=== PATIENT | female | born 1945 | race Caucasian/White ===

== ENCOUNTER 2021-02-01 03:58 | Inpatient (IN) | payer MEDICARE, OTHER ==
[~2021-02-01] VITALS: Ht 162.6 cm; Wt 6.1 kg
[2021-02-01] MEDS ORDERED: normal saline 1000ml 1,000 ML IVB ONE (04:05)
[2021-02-01] MEDS ORDERED: acetaminophen 325mg tablet PO STA (04:05)
[2021-02-01] MEDS ORDERED: CefTRIAXone 2gm/D5W 50ml BAG 50 ML IV ONE (04:15)
[2021-02-01 04:32] LABS: BASOPHILS % (AUTO) 0.4 % (0-1); EOSINOPHILS % (AUTO) 0.6 % (0-6); HEMATOCRIT 39.2 % (35.0-45.0); HEMOGLOBIN 13.3 g/dl (12.0-16.0); LYMPHOCYTES # (AUTO) 0.7 X10'3 (1.1-4.8); LYMPHOCYTES % (AUTO) 8.9 % (21-51); MEAN CORPUSCULAR HEMOGLOBIN 32.9 PG (27.0-31.0); MEAN CORPUSCULAR HGB CONC 34.1 g/dL (33.0-36.5); MEAN CORPUSCULAR VOLUME 96.6 FL (78-98); MEAN PLATELET VOLUME 6.6 FL (7.4-10.4); MONOCYTES # (AUTO) 0.5 X10'3 (0-0.9); MONOCYTES % (AUTO) 6.6 % (2-12); NEUTROPHILS # (AUTO) 6.5 X10'3 (1.8-7.7); NEUTROPHILS % (AUTO) 83.5 % (42-75); PLATELET COUNT 252 X10'3 (140-440); RED BLOOD COUNT 4.05 X10'6 (4.20-5.60); RED CELL DISTRIBUTION WIDTH 13.5 % (11.5-14.5); WHITE BLOOD COUNT 7.8 X10'3 (4.5-11.0)
[2021-02-01 04:52] LABS: ALANINE AMINOTRANSFERASE 31 U/L (12-78); ALBUMIN 3.6 G/DL (3.4-5.0); ALBUMIN/GLOBULIN RATIO 1.1 (1.1-1.5); ALKALINE PHOSPHATASE 70 IU/L (46-116); ANION GAP 11 (8-16); ASPARTATE AMINO TRANSFERASE 31 U/L (10-37); BILIRUBIN,TOTAL 1.3 MG/DL (0.1-1.0); BLOOD UREA NITROGEN 14 MG/DL (7-18); BUN/CREATININE RATIO 15.2 (6.6-38.0); CALCIUM 8.9 MG/DL (8.5-10.1); CHLORIDE 108 MMOL/L (99-107); CREATININE 0.92 MG/DL (0.40-0.90); GLUCOSE 115 MG/DL (70-104); POTASSIUM 3.9 MMOL/L (3.5-5.1); SODIUM 143 MMOL/L (135-145); TOTAL CARBON DIOXIDE 23.9 MMOL/L (24-32); eGFR 60 ML/MIN
[2021-02-01] MEDS ORDERED: fentaNYL/PF 50MCG/1 ML 2ML syringe IV STA (05:11)
[2021-02-01] MEDS ORDERED: ketorolac trometh. 30mg/ml inj. IV STA (05:11)
--- NOTE | 2021-02-01 05:12 | NUR ---
MD INFORMED THAT PATIENT'S TEMPERATURE WENT UP AND SHE CONTINUES TO SHAKE AND IS VERY UNCOMFORTABLE HE WAS AT BS TO SEE HER, VO PLACED
[2021-02-01 05:40] LABS: CLARITY,URINE CLOUDY (Clear); COLOR,URINE YELLOW (Yellow); GLUCOSE, URINE NEGATIVE (Neg); KETONES,URINE NEGATIVE (Neg); LEUKOCYTE ESTERASE ,URINE SMALL (Neg); NITRITES, URINE POSITIVE (Neg); OCCULT BLOOD,URINE SMALL (Neg); PROTEIN,URINE NEGATIVE (Neg); UROBILINOGEN,URINE 0.2 E.U/dL (0.2-1.0)
[2021-02-01] MEDS ORDERED: potassium Cl 20 mEq SR tablet PO PRN ×2 (05:45)
[2021-02-01] MEDS ORDERED: magnesium 2GM in 50ml NS 50 ML IV PRN (05:45)
[2021-02-01] MEDS ORDERED: magnesium hydroxide 30ml (MOM) UD suspension PO PRN (05:45)
[2021-02-01] MEDS ORDERED: ondansetron/PF 4mg/2ml inj IV PRN (05:45)
[2021-02-01] MEDS ORDERED: magnesium 4gm in 100ml NS 100 ML IV PRN (05:45)
[2021-02-01] MEDS ORDERED: acetaminophen 325mg tablet PO PRN (05:45)
[2021-02-01] MEDS ORDERED: mag hydrox/Alum hydrox/simeth 30ml oral suspension PO PRN (05:45)
[2021-02-01] MEDS ORDERED: magnesium Cl slow-release 64mg tablet PO PRN (05:45)
[2021-02-01] MEDS ORDERED: potassium Cl 40MEQ/1/2NS 520ml 520 ML IV PRN ×2 (05:45)
[2021-02-01] MEDS: normal saline 1000ml 1,000 ML IV SCH ×3 (05:52→23:27)
[2021-02-01] MEDS ORDERED: XAL0.005OS OP (05:55)
[2021-02-01] MEDS ORDERED: SYN0.088T PO (05:55)
[2021-02-01 05:59] LABS: UA COLLECTION TYPE CLN CATCH MIDSTREAM
[2021-02-01 06:02] LABS: BACTERIA,URINE 3+ /HPF (Neg); SQUAMOUS EPITHELIAL CELL,UR FEW /LPF (FEW)
[2021-02-01 06:03] LABS: WBC CLUMPS,URINE MODERATE /HPF (NEGATIVE)
[2021-02-01] MEDS: K and/or MAG REPLACEMENT MC SCH ×2 (07:31→19:30)
--- NOTE | 2021-02-01 08:37 | NUR ---
Patient in room ED 6. I have received report from ALFIE Preston and had the opportunity to ask questions and assume patient care.
[2021-02-01 09:00] VITALS: BP 103/54
[2021-02-01] MEDS: acetaminophen 325mg tablet PO PRN (09:58)
[2021-02-01] MEDS: levoTHYROXINE 88mcg tablet PO SCH (13:39)
--- NOTE | 2021-02-01 16:05 | NUR ---
PAGER ID: [phone] MESSAGE: [facility] med/surg [id number]. Pt: Melvin Rm: 344-A. Positive blood culture Gram neg rods in Aerobic bottle. Thanks
[2021-02-01 18:00] VITALS: BP 119/49
--- NOTE | 2021-02-01 18:07 | NUR ---
Problems reprioritized. Patient report given, questions answered & plan of care reviewed with ALFIE Rivas. Pt relaxed, denies pain or discomfort. Ambulates to bathroom ad erin.
--- NOTE | 2021-02-01 18:52 | NUR ---
Patient in room [facility]. I have received report from AYDEE JUDGE and had the opportunity to ask questions and assume patient care.
[2021-02-01] MEDS: latanoprost 0.005% 2.5ml ophthalmic drops EACHEYE SCH (21:15)
[2021-02-02 00:05] VITALS: BP 113/49
[2021-02-02 05:48] LABS: BASOPHILS % (AUTO) 0.5 % (0-1); EOSINOPHILS # (AUTO) 0.1 X10'3 (0-0.9); EOSINOPHILS % (AUTO) 1.4 % (0-6); HEMOGLOBIN 11.9 g/dl (12.0-16.0); LYMPHOCYTES # (AUTO) 1.5 X10'3 (1.1-4.8); MEAN CORPUSCULAR HGB CONC 33.9 g/dL (33.0-36.5); MEAN CORPUSCULAR VOLUME 97.3 FL (78-98); MONOCYTES # (AUTO) 0.5 X10'3 (0-0.9); MONOCYTES % (AUTO) 7.9 % (2-12); NEUTROPHILS # (AUTO) 4.5 X10'3 (1.8-7.7); NEUTROPHILS % (AUTO) 67.2 % (42-75); PLATELET COUNT 209 X10'3 (140-440); RED CELL DISTRIBUTION WIDTH 13.9 % (11.5-14.5); WHITE BLOOD COUNT 6.7 X10'3 (4.5-11.0)
--- NOTE | 2021-02-02 06:04 | NUR ---
Problems reprioritized. Patient report given, questions answered & plan of care reviewed with AYDEE JUDGE.
[2021-02-02 06:14] LABS: ALANINE AMINOTRANSFERASE 105 U/L (12-78); ALBUMIN 2.9 G/DL (3.4-5.0); ALBUMIN/GLOBULIN RATIO 0.9 (1.1-1.5); ALKALINE PHOSPHATASE 70 IU/L (46-116); ANION GAP 11 (8-16); ASPARTATE AMINO TRANSFERASE 77 U/L (10-37); BILIRUBIN,TOTAL 1.3 MG/DL (0.1-1.0); BLOOD UREA NITROGEN 10 MG/DL (7-18); BUN/CREATININE RATIO 13.3 (6.6-38.0); CALCIUM 7.4 MG/DL (8.5-10.1); CHLORIDE 110 MMOL/L (99-107); CREATININE 0.75 MG/DL (0.40-0.90); GLUCOSE 92 MG/DL (70-104); MAGNESIUM 1.9 MG/DL (1.5-2.4); POTASSIUM 3.7 MMOL/L (3.5-5.1); SODIUM 143 MMOL/L (135-145); TOTAL CARBON DIOXIDE 22.4 MMOL/L (24-32); TOTAL PROTEIN 6.1 G/DL (6.4-8.2); eGFR 75 ML/MIN
--- NOTE | 2021-02-02 06:47 | NUR ---
Patient in room [facility] 344. I have received report from ALFIE Rivas and had the opportunity to ask questions and assume patient care.
[2021-02-02 07:01] VITALS: BP 140/68
[2021-02-02] MEDS: CefTRIAXone/D5W-Rocephin 1gm 50 ML IV SCH (07:59)
[2021-02-02] MEDS: K and/or MAG REPLACEMENT MC SCH ×2 (08:00→20:00)
[2021-02-02] MEDS: levoTHYROXINE 88mcg tablet PO SCH (08:01)
[2021-02-02] MEDS: acetaminophen 325mg tablet PO PRN (08:01)
[2021-02-02 11:33] VITALS: BP 141/63
[2021-02-02] MEDS: normal saline 1000ml 1,000 ML IV SCH ×2 (12:20→21:45)
--- NOTE | 2021-02-02 19:09 | NUR ---
Problems reprioritized. Patient report given, questions answered & plan of care reviewed with ALFIE Mcgill.
--- NOTE | 2021-02-02 19:10 | NUR ---
Patient in room [facility] 344. I have received report from AYEDE JUDGE and had the opportunity to ask questions and assume patient care.
[2021-02-02 20:00] VITALS: BP 143/59
[2021-02-02] MEDS: lactobacillus rhamnosus 10,000 MMU CELLS/CAPSULE PO SCH (20:23)
[2021-02-02] MEDS: latanoprost 0.005% 2.5ml ophthalmic drops EACHEYE SCH (20:24)
[2021-02-03] VITALS: BP 158/71
[2021-02-03] MEDS: normal saline 1000ml 1,000 ML IV SCH (01:31)
[2021-02-03 06:17] LABS: BASOPHILS % (AUTO) 0.6 % (0-1); EOSINOPHILS # (AUTO) 0.1 X10'3 (0-0.9); EOSINOPHILS % (AUTO) 2.4 % (0-6); HEMATOCRIT 33.2 % (35.0-45.0); HEMOGLOBIN 11.3 g/dl (12.0-16.0); LYMPHOCYTES # (AUTO) 1.4 X10'3 (1.1-4.8); MEAN CORPUSCULAR HGB CONC 34.2 g/dL (33.0-36.5); MEAN CORPUSCULAR VOLUME 96.6 FL (78-98); MEAN PLATELET VOLUME 7.5 FL (7.4-10.4); MONOCYTES # (AUTO) 0.4 X10'3 (0-0.9); MONOCYTES % (AUTO) 9.1 % (2-12); NEUTROPHILS # (AUTO) 2.3 X10'3 (1.8-7.7); NEUTROPHILS % (AUTO) 54.9 % (42-75); PLATELET COUNT 198 X10'3 (140-440); RED BLOOD COUNT 3.44 X10'6 (4.20-5.60); RED CELL DISTRIBUTION WIDTH 13.8 % (11.5-14.5); WHITE BLOOD COUNT 4.1 X10'3 (4.5-11.0)
[2021-02-03 06:25] LABS: ALANINE AMINOTRANSFERASE 71 U/L (12-78); ALBUMIN 2.7 G/DL (3.4-5.0); ALBUMIN/GLOBULIN RATIO 0.9 (1.1-1.5); ALKALINE PHOSPHATASE 65 IU/L (46-116); ANION GAP 11 (8-16); ASPARTATE AMINO TRANSFERASE 34 U/L (10-37); BILIRUBIN,TOTAL 0.7 MG/DL (0.1-1.0); CALCIUM 7.6 MG/DL (8.5-10.1); CHLORIDE 110 MMOL/L (99-107); CREATININE 0.68 MG/DL (0.40-0.90); GLUCOSE 83 MG/DL (70-104); POTASSIUM 3.8 MMOL/L (3.5-5.1); SODIUM 144 MMOL/L (135-145); TOTAL CARBON DIOXIDE 22.8 MMOL/L (24-32); TOTAL PROTEIN 5.8 G/DL (6.4-8.2); eGFR 84 ML/MIN
--- NOTE | 2021-02-03 06:28 | NUR ---
Problems reprioritized. Patient report given, questions answered & plan of care reviewed with SATYA JUDGE.
[2021-02-03 06:30] LABS: BLOOD UREA NITROGEN 12 MG/DL (7-18); BUN/CREATININE RATIO 17.6 (6.6-38.0)
--- NOTE | 2021-02-03 06:35 | NUR ---
Patient in room [facility] 344. I have received report from Artem JUDGE and had the opportunity to ask questions and assume patient care.
[2021-02-03 07:29] VITALS: BP 156/71
[2021-02-03] MEDS: K and/or MAG REPLACEMENT MC SCH (08:00)
[2021-02-03] MEDS: levoTHYROXINE 88mcg tablet PO SCH (08:36)
[2021-02-03] MEDS: lactobacillus rhamnosus 10,000 MMU CELLS/CAPSULE PO SCH (08:36)
[2021-02-03] MEDS: CefTRIAXone/D5W-Rocephin 1gm 50 ML IV SCH (08:37)
[2021-02-03] MEDS ORDERED: LEVO500T89 PO (10:34)
[2021-02-03] MEDS ORDERED: acetaminophen 325mg tablet PO PRN (10:40)
--- NOTE | 2021-02-03 12:08 | NUR ---
patient up and about seen by Dr Lopez is for discharge . All Dc instructions given to patient. PIV DC intact. patient Dc home via private car to home with spouse.
== END 2021-02-03 11:50 | disposition home or self-care (01) | DRG 872 ==
LOC: ER 03:59 → ED HOLD 05:41 → SUR 3N 09:21
PROVIDERS: ADMIT Family Medicine; ATTEND Family Medicine
DX: A41.9 Sepsis, unspecified organism (principal); N39.0 Urinary tract infection, site not specified; Z60.2 Problems related to living alone; B96.20 Unspecified Escherichia coli [E. coli] as the cause of diseases classified elsewhere; E03.9 Hypothyroidism, unspecified; Z79.84 Long term (current) use of oral hypoglycemic drugs
CPT/HCPCS: 36415; 71045; 80053; 81001; 83605; 83735; 84145; 85025; 87040; 87077; 87081; 87088; 87186; 93005; 96365; 99285; G0378; J0696; J1885; J3010; J7030